=== PATIENT | male | born 1975 | race Caucasian/White ===

== ENCOUNTER 2017-04-03 23:43 | Emergency (ER) | payer SELFPAY ==
[~2017-04-03] VITALS: Ht 172.7 cm; Wt 99.8 kg
--- NOTE | 2017-04-03 23:43 | NUR ---
BIB [facility]
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
[2017-04-04] VITALS: BP 155/108
[2017-04-04] MEDS ORDERED: ZESTRIL10 MG PO (00:07)
[2017-04-04 00:46] VITALS: BP 150/99
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
== END 2017-04-04 00:47 ==
LOC: MED 23:43
DX: Z02.89 Encounter for other administrative examinations (principal); I10 Essential (primary) hypertension